=== PATIENT | male | born 1965 | race Caucasian/White ===

== ENCOUNTER 2025-07-01 07:30 | Outpatient (RCR) | payer OTHER, SELFPAY | END 2025-10-29 23:59 | disposition home or self-care (01) | PROVIDERS: Visit Provider Physician Assistant | DX: M72.0 Palmar fascial fibromatosis [Dupuytren] (principal); Z51.89 Encounter for other specified aftercare | CPT/HCPCS: 97035; 97110; 97140; 97165; X5282 ==